=== PATIENT | male | born 1960 | race Caucasian/White ===

== ENCOUNTER 2020-06-25 07:29 | Outpatient (CLI) | payer BC, SELFPAY ==
[2020-06-25 07:34] VITALS: BMI 30.9
--- NOTE | 2020-06-25 07:35 | ECG_ITS ---
[facility] Test Date: 2020-06-25 Pat Name: Frank Boykin Department: Room: Gender: Male Capacity Analyst: : 1960 Requested By: Christophre Purvis Order Number: [id number] Chung MD: Benny Groves M.D. Interpretive Statements NAME OF STUDY: LEXISCAN SESTAMIBI STRESS TEST INDICATION: [abnormal ekg] Procedure: At the baseline the blood pressure was 146/101 mmHg, with a heart rate of 82 bpm. The electrocardiogram showed normal sinus rhythm, normal axis with normal ST and T's. The Lexiscan was infused over the period Of 20 seconds. A total of 0.4 mg of Lexiscan was infused. The stress phase was continued for a total of 5 minutes. Heart rate at the end of stress phase was 86 bpm, with a blood pressure of 142/97 mmHg. The EKG at the peak infusion revealed sinus tachycardia with no significant ST-T wave changes. Sestamibi was injected 20 seconds after Lexiscan infusion. Blood pressure at the end of recovery phase was 137/86 mmHg, with a heart rate of 83 bpm. EKG showed sinus tachycardia without significant ST???T wave changes. Conclusion: 1. Normal EKG response to Lexiscan infusion. 2. No Lexiscan induced chest pain or cardiac arrhythmia. 3. Normal blood pressure and heart rate response. 4. Sestamibi/sestamibi perfusion scan pending; see separate report. Electronically Signed On 07-10-2020 19:51:21 CDT by Benny Groves M.D. [id number]
--- NOTE | 2020-06-25 07:35 | NMCV_ITS ---
NM bethany perf SPECT r/s* [id number] Frank Boykin Age: 59 Gender: M : 1960 Exam Date: 06/25/2020 08:33 Ordering Phys: Christopher Johnson MD Technologist: GAGE Ji Exam Location: [facility] Indications: ABNORMAL EKG STRESS TEST Please see separate stress test report in [facility] for full findings IMAGE PROTOCOL Rest/Stress 1 Lexiscan Day Radiopharmaceutical Dose (mCi) Administration Site Administered by Rest: Tc-99m 10.9 IV GAGE Watson Sestamibi Stress:Tc-99m 32.7 IV GAGE Watson Sestamibi Rest: 25-Jun-2020 60 Discovery 630 Stress: 25-Jun-2020 30 Discovery 630 0.4mg Lexiscan. Images obtained in supine and prone position. SPECT RESULTS Technical Quality: Excellent Raw Data Analysis: Normal Image Corrections: No attenuation or motion correction applied Summed Stress Score: 3 Summed Rest Score: 3 Summed Difference Score: 1 PERFUSION FINDINGS Small area of decreases uptake was noted in the mid inferior, inferolateral and apical inferior regions. A subtle area of reversibility was noted in the mid inferolateral region. FUNCTIONAL RESULTS (calculated via Gated SPECT) Stress Image LV EF (%): 65 Stress EDV (mL):111 TID: 1.13 Stress ESV (mL):39 FUNCTIONAL FINDINGS: Segmental wall motion analysis revealing no gross wall motion normalities. IMPRESSIONS 1. Myocardial perfusion imaging revealing a small area of decreases uptake in the mid inferolateral, mid inferior and apical lateral regions, with a subtle area of reversibility in the mid inferolateral region, suggestive of myocardial scarring in the distribution of the left circumflex artery/right coronary artery with a very small area of possible bull-infarction ischemia in the distribution of the circumflex artery. 2. Normal LV ejection fraction of 65%. 3. LV wall motion analysis revealing no gross wall motion normalities. 4. Normal LV volume. No similar previous studies are available for comparison Dr Zhen Eden MD FAC (Electronically Signed) Final Date: 25 June 2020 13:42 S
[2020-06-25] MEDS: regadenoson 0.4 Mg/5 ml Syringe IVP (09:58)
[2020-06-25 10:18] VITALS: BP 137/86; PULSE 83
== END 2020-06-25 07:30 | disposition home or self-care (01) ==
LOC: CDL 07:32
PROVIDERS: Family Provider Family Medicine; Visit Provider Family Medicine
DX: R94.31 Abnormal electrocardiogram [ECG] [EKG] (principal); I25.9 Chronic ischemic heart disease, unspecified
CPT/HCPCS: 78452; 93017; A9500; J2785

== ENCOUNTER 2020-07-22 19:20 | Outpatient (CLI) | payer BC, SELFPAY ==
[2020-07-22 20:49] LABS: INR 1.88 (0.8-1.2)
== END 2020-07-22 19:21 | disposition home or self-care (01) ==
LOC: LAB 19:24
PROVIDERS: Family Provider Family Medicine; Visit Provider Chiropractor Sports Physician
DX: Z51.81 Encounter for therapeutic drug level monitoring (principal)
CPT/HCPCS: 85610

== ENCOUNTER 2020-07-29 07:57 | Outpatient (CLI) | payer BC, SELFPAY ==
[2020-07-29 08:41] LABS: INR 2.06 (0.8-1.2)
== END 2020-07-29 07:58 | disposition home or self-care (01) ==
LOC: LAB 08:00
PROVIDERS: PCP Family Medicine; Visit Provider Orthopaedic Surgery
DX: Z51.81 Encounter for therapeutic drug level monitoring (principal)
CPT/HCPCS: 85610

== ENCOUNTER 2020-08-02 12:37 | Outpatient (RCR) | payer BC, SELFPAY | END 2020-08-23 23:59 | disposition home or self-care (01) | LOC: SPT 12:37 | PROVIDERS: PCP Family Medicine; Referring Provider Orthopaedic Surgery; Visit Provider Orthopaedic Surgery | DX: Z47.1 Aftercare following joint replacement surgery (principal); Z96.642 Presence of left artificial hip joint | CPT/HCPCS: 97110; 97162 ==

== ENCOUNTER 2020-08-02 12:49 | Outpatient (CLI) | payer BC, SELFPAY ==
[2020-08-02 13:23] LABS: INR 2.06 (0.8-1.2)
== END 2020-08-02 12:50 | disposition home or self-care (01) ==
LOC: LAB 12:51
PROVIDERS: PCP Family Medicine; Visit Provider Orthopaedic Surgery
DX: Z79.01 Long term (current) use of anticoagulants (principal); Z51.81 Encounter for therapeutic drug level monitoring
CPT/HCPCS: 36415; 85610

== ENCOUNTER 2020-08-10 07:53 | Outpatient (RCR) | payer BC, SELFPAY ==
[2020-08-05 09:23] LABS: INR 1.82 (0.8-1.2)
[2020-08-10 08:20] LABS: INR 1.93 (0.8-1.2)
== END 2020-08-23 23:59 | disposition home or self-care (01) ==
LOC: LAB 07:53
PROVIDERS: PCP Family Medicine; Visit Provider Orthopaedic Surgery
DX: Z79.01 Long term (current) use of anticoagulants (principal); Z96.649 Presence of unspecified artificial hip joint; Z96.659 Presence of unspecified artificial knee joint; Z51.81 Encounter for therapeutic drug level monitoring
CPT/HCPCS: 36415; 85610

== ENCOUNTER 2020-08-24 06:00 | Outpatient (RCR) | payer BC, SELFPAY | END 2020-09-07 23:00 | disposition home or self-care (01) | LOC: SPT 06:00 | PROVIDERS: PCP Family Medicine; Referring Provider Orthopaedic Surgery; Visit Provider Orthopaedic Surgery | DX: Z47.1 Aftercare following joint replacement surgery (principal); Z96.642 Presence of left artificial hip joint | CPT/HCPCS: 97110 ==

== ENCOUNTER 2020-09-21 10:28 | Outpatient (CLI) | payer BC, SELFPAY ==
[2020-09-21 11:06] VITALS: BP 130/82; PULSE 84; RESP 17; TEMP 36.3; O2SAT 99; BMI 35.2
--- NOTE | 2020-09-21 11:29 | AMB.MCA ---
Patient Information Referred by: Elizabeth Symptom onset date: 09/20/20 COVID 19 common symptoms: positive chills, cough, non-productive cough, fatigue and body aches COVID 19 other sytmptoms: negative chest pressure, chest pain, requiring oxygen (99% RA) or requiring more oxygen Severity: moderate Treatment prior to arrival: none [facility] COVID test results: No Data to Display Criteria/Plan Inclusion/Exclusion Criteria weight >/= 40kg, + direct test </= 10 days ago and symptom onset </= 10 days ago has diabetes and age >/= 55 and has hypertension not requiring hospitalization, not requiring oxygen (if not chronically on oxygen) and no increase oxygen requirement (if chronically on oxygen) Patient education patient/caregiver received/reviewed fact sheet, Emergency Use Authorization/unapproved drug status discussed with patient/caregiver, alternatives to this treatment discussed with patient/caregiver, risks and benefits of medication reviewed with patient/caregiver, patient/caregiver given opportunity for questions, which were answered and patient/caregiver consents to receiving Monoclonal Antibody Treatment Plan for treatment Meets criteria for Monoclonal Antibody infusion Ordering Monoclonal Antibody infusion for today
[2020-09-21 12:15] VITALS: BP 120/81; PULSE 81; RESP 17; TEMP 36.4; O2SAT 96
[2020-09-21 12:37] VITALS: BP 123/81; PULSE 86; RESP 16; TEMP 36.6; O2SAT 96
[2020-09-21 14:02] VITALS: BP 119/80; PULSE 87; RESP 17; TEMP 36.4; O2SAT 97
--- NOTE | 2020-09-28 13:05 | DCPLANNER ---
Addendum entered by Jo Davis 10/05/20 13:28: manager inventory management called patient to check on patient 10 days after getting infusion. Patient stated that he is doing great, has went back to work. Patient stated that he has not been admitted to hospital. 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 Original Note: late entry - manager inventory management had message that patient received the BAM infusion. manager inventory management wrote in spread sheet, forgot to right in patients chart. Patient stated that he tolorated the infusion well. Patient stated that before he had the infusion that he had chills, a bad headache, he felt exhausted, he was tired, he had a bad cough. After the infusion patient stated that he still has cough, and it is a little worse than before. His chills are better, body aches are about the same, and his headache is better.
== END 2020-09-21 13:56 | disposition home or self-care (01) ==
PROVIDERS: PCP Family Medicine; Visit Provider Family Medicine
DX: U07.1 COVID-19 (principal)
CPT/HCPCS: J7050

== ENCOUNTER 2020-10-15 09:45 | Emergency (ER) | payer BC, SELFPAY ==
[2020-10-15 09:47] VITALS: BP 147/92; PULSE 96; RESP 18; TEMP 35.9; O2SAT 95; BMI 32.1
--- NOTE | 2020-10-15 09:52 | XR_ITS ---
WS: [id number] Left ankle, 3 views, 10/15/2020 Clinical Data: ankle pain Comparison: None. Findings: No fractures or dislocations are seen. The ankle mortise is normal. The talus and calcaneus are unrem arkable. No soft tissue swelling over the medial or lateral malleolus is seen. There is a bone cyst in the calcaneus which is a normal variation. There is a small plantar spur. XR/XR ankle LT min 3V* [id number] Impression: Negative left ankle.
--- NOTE | 2020-10-15 09:52 | W.ED.LOWEXIN ---
HPI - Extremity Injury (Lower) General: Chief Complaint: Extremity Injury, Lower Stated Complaint: L FOOT/ANKLE PAIN/INJURY Time Seen by Provider: 10/15/20 09:52 Source: patient Mode of arrival: ambulatory (with limp) Limitations: no limitations History of Present Illness: HPI Narrative: Patient is a nice 59-year-old gentleman who presents to ED today for evaluation of a left lower extremity injury. Patient tells me he was pushing a golf cart up a ramp when he heard a pop . He states since that time his ankle has felt unsteady . He is complaining of pain to the posterior aspect. He feels like the ankle is starting to swell. complaint: ankle injury and foot injury Onset (ago): hour(s) Place: work Exacerbating factors: weight bearing Other symptoms: none Review of Systems Musc: Reports: extremity pain (L posterior foot/ankle pain) Neuro: Denies: numbness in extremities or sensory changes PFSH ED PFSH: Medical History (Updated 10/15/20 @ 10:39 by OSMANI Terry) Diabetes mellitus History of DVT (deep vein thrombosis) History of NC (myocardial infarction) Hypertension Physical Exam Const: COMMON NORMALS: no acute distress, average body habitus, patient oriented x3, no limitations, healthy appearing, alert and well nourished Extremity: COMMON NORMALS: normal to inspection GENERAL: Yes normal exam except as noted OTHER: pt with TTP over heel and distal Achilles tendon and along medial wall of distal tendon; there is no palpable bump; no obvious swelling/warmth; he does have decreased plantarflexion and pain with Owusu's test Neuro: COMMON NORMALS: patient oriented x3, moves all extremities, no focal motor deficits and no sensory deficits noted SENSORIUM/ORIENTATION: Yes alert GAIT: Yes Other gait observations present (limping gait) Skin: COMMON NORMALS: no rashes or lesions noted GENERAL SKIN EXAM: no rashes or lesions noted Course Vital Signs: Vital signs: Vital Signs Temperature 96.6 F L 10/15/20 09:47 Pulse Rate 96 10/15/20 09:47 Respiratory Rate 18 10/15/20 09:47 Blood Pressure 147/92 10/15/20 09:47 Pulse Oximetry 95 10/15/20 09:47 MDM - Extremity Injury (Lower) MDM Narrative: Medical decision making narrative: At this time my suspicion is that patient has a partial Achilles tendon tear. He will be splinted and given crutches and CM will work on getting him set up with orthopedics for further evaluation. Imaging Data^: XR L ankle : Radiologist's impression: [address] [place] [address] XRay Report Signed Patient: Frank Boykin Unit #: [id number] : 1960 Age/Sex: 59 / M ADM Date: 10/15/20 Loc: ER Room/Bed: Attending Dr: Ordering Provider/Ordering MD: Ron Ramirez DO Date of Service: 10/15/20 Procedure(s): XR ankle LT min 3V* [id number] Accession Number(s): [id number] Report Number: [id number] WS: [id number] Left ankle, 3 views, 10/15/2020 Clinical Data: ankle pain Comparison: None. Findings: No fractures or dislocations are seen. The ankle mortise is normal. The talus and calcaneus are unremarkable. No soft tissue swelling over the medial or lateral malleolus is seen. There is a bone cyst in the calcaneus which is a normal variation. There is a small plantar spur. XR/XR ankle LT min 3V* [id number] Impression: Negative left ankle. Dictated By: Jaylene Ellis MD Signed By: Jaylene Ellis MD Signed Date/Time: 10/15/20 1006 DD/ 1005 Discharge Plan Discharge Patient Disposition: Home Clinical Impression: Partial Achilles tendon tear Qualifiers: Encounter type: initial encounter Laterality: left Qualified Code(s): S86.012A - Strain of left Achilles tendon, initial encounter Condition: Stable Prescriptions: No Action pioglitazone 30 mg Tablet 30 mg PO DAILY RF: 0 amlodipine 5 mg Tablet RF: 0 lisinopril 40 mg Tablet 40 mg PO DAILY RF: 0 lansoprazole 30 mg Capsule,Delayed Release(Dr/Ec) RF: 0 valacyclovir 500 mg Tablet 500 mg PO DAILY RF: 0 glimepiride 4 mg Tablet 4 mg PO DAILY RF: 0 Glucophage 1,000 mg Tablet PO RF: 0 Legatrin PM 50-500 mg Tablet PO RF: 0 Jeanie Aspirin 325 mg Tablet 325 mg PO DAILY RF: 0 Discharge Orders: Discharge ED (Routine); Ordered 10/15/20 Ordered By: Roxana Covington Referrals: Christopher Johnson MD [Primary Care Provider] - Patient Instructions: Achilles Tendon Rupture (ED), Achilles Tendinitis (ED) Activity Restrictions/Additional Instructions: As discussed you need to stay in your splint and be non-weight bearing until told otherwise by orthopedics. Case management will work on getting you set up with an appointment to see them for further evaluation. Coding Level of Care Code ED Double End Tenoner Setter for Dago Patricio
--- NOTE | 2020-10-15 10:33 | PC.NURSE ---
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
--- NOTE | 2020-10-15 10:50 | DCPLANNER ---
Addendum entered by Jo Davis 10/15/20 11:44: Patient wants to be seen in [facility], would like to see Dr. Velasquez at [facility]. research project manager faxed patients information to the clinic. Clinic will call patient with appointment information. research project manager called [facility], and cancelled the referral. Original Note: research project manager was asked to schedule a follow up appointment for patient with ortho. research project manager called the ortho clinic, spoke with Yu, gave clinic patients information. research project manager was told that patients information would be printed and reviewed. Clinic will call patient with appointment information.
[2020-10-15 11:08] VITALS: BP 142/89; PULSE 91; RESP 20; O2SAT 96
--- NOTE | 2020-10-26 12:56 | DCPLANNER ---
Patient had a follow up appointment with Dr. Velasquez in [facility], patient did attend appointment.
== END 2020-10-15 11:14 | disposition home or self-care (01) ==
PROVIDERS: Emergency Provider Physician Assistant; PCP Family Medicine
DX: S86.012A Strain of left Achilles tendon, initial encounter (principal); Z79.82 Long term (current) use of aspirin; E11.9 Type 2 diabetes mellitus without complications; I25.2 Old myocardial infarction; I10 Essential (primary) hypertension; X50.9XXA Other and unspecified overexertion or strenuous movements or postures, initial encounter
CPT/HCPCS: 12345; 73610; 99282; 99283; E0114; L3260

== ENCOUNTER 2020-11-23 12:03 | Outpatient (RCR) | payer BC, SELFPAY | END 2020-12-22 23:59 | disposition home or self-care (01) | LOC: SPT 12:03 | PROVIDERS: PCP Family Medicine; Referring Provider Orthopaedic Surgery; Visit Provider Orthopaedic Surgery | DX: Z98.890 Other specified postprocedural states (principal) | CPT/HCPCS: 97110; 97140; 97161 ==

== ENCOUNTER 2020-12-23 06:00 | Outpatient (RCR) | payer BC, SELFPAY | END 2021-01-19 14:21 | disposition home or self-care (01) | LOC: SPT 06:00 | PROVIDERS: PCP Family Medicine; Referring Provider Orthopaedic Surgery; Visit Provider Orthopaedic Surgery | DX: Z98.890 Other specified postprocedural states (principal) | CPT/HCPCS: 97110; 97140 ==

== ENCOUNTER → 2022-11-16 09:28 | Outpatient (BNVA) | payer BC, SELFPAY | PROVIDERS: PCP Family Medicine; Visit Provider Family Medicine | DX: I10 Essential (primary) hypertension (principal); E11.9 Type 2 diabetes mellitus without complications | CPT/HCPCS: 80053; 80061; 83036 ==

== ENCOUNTER → 2023-02-07 08:45 | Outpatient (BNVA) | payer BC, SELFPAY | PROVIDERS: PCP Family Medicine; Visit Provider Family Medicine | DX: I10 Essential (primary) hypertension (principal); E11.9 Type 2 diabetes mellitus without complications; R05.9 Cough, unspecified | CPT/HCPCS: 80053; 80061; 83036; 83880; 85025; 85379 ==

== ENCOUNTER → 2023-05-22 08:57 | Outpatient (BNVA) | payer BC, SELFPAY | PROVIDERS: PCP Family Medicine; Visit Provider Family Medicine | DX: I10 Essential (primary) hypertension (principal); E11.9 Type 2 diabetes mellitus without complications | CPT/HCPCS: 80053; 80061; 83036 ==

== ENCOUNTER → 2023-09-12 08:48 | Outpatient (BNVA) | payer BC, SELFPAY | PROVIDERS: PCP Family Medicine; Visit Provider Family Medicine | DX: I10 Essential (primary) hypertension (principal); E11.9 Type 2 diabetes mellitus without complications | CPT/HCPCS: 80053; 80061; 83036; 83721; 85025 ==

== ENCOUNTER → 2023-12-12 08:33 | Outpatient (BNVA) | payer BC, SELFPAY | PROVIDERS: PCP Family Medicine; Visit Provider Family Medicine | DX: I10 Essential (primary) hypertension (principal); E11.9 Type 2 diabetes mellitus without complications | CPT/HCPCS: 80053; 80061; 83036 ==

== ENCOUNTER → 2024-03-13 08:51 | Outpatient (BNVA) | payer BC, SELFPAY | PROVIDERS: PCP Family Medicine; Visit Provider Family Medicine | DX: I10 Essential (primary) hypertension (principal); E11.9 Type 2 diabetes mellitus without complications | CPT/HCPCS: 80053; 80061; 83036 ==

== ENCOUNTER → 2024-06-11 09:10 | Outpatient (BNVA) | payer MEDICARE, SELFPAY | PROVIDERS: PCP Family Medicine; Visit Provider Family Medicine | DX: I10 Essential (primary) hypertension (principal); E11.9 Type 2 diabetes mellitus without complications | CPT/HCPCS: 80053; 80061; 83036; 85025 ==

== ENCOUNTER → 2024-09-08 13:48 | Outpatient (BNVA) | payer MEDICARE, SELFPAY | PROVIDERS: PCP Family Medicine; Visit Provider Family Medicine | DX: I10 Essential (primary) hypertension (principal); E11.9 Type 2 diabetes mellitus without complications | CPT/HCPCS: 80053; 80061; 83036 ==

== ENCOUNTER → 2024-11-27 08:42 | Outpatient (BNVA) | payer MEDICARE, SELFPAY | PROVIDERS: PCP Family Medicine; Visit Provider Family Medicine | DX: I10 Essential (primary) hypertension (principal); E11.9 Type 2 diabetes mellitus without complications | CPT/HCPCS: 80053; 80061; 83036 ==

== ENCOUNTER → 2024-12-11 12:57 | Outpatient (BNVA) | payer MEDICARE, SELFPAY | PROVIDERS: PCP Family Medicine; Visit Provider Podiatrist Foot & Ankle Surgery | DX: E11.9 Type 2 diabetes mellitus without complications (principal); S86.011A Strain of right Achilles tendon, initial encounter; X58.XXXA Exposure to other specified factors, initial encounter; Z79.84 Long term (current) use of oral hypoglycemic drugs | CPT/HCPCS: 99203 ==

== ENCOUNTER 2024-12-23 05:00 | Outpatient (RCR) | payer MEDICARE, SELFPAY | END 2025-01-21 23:59 | disposition home or self-care (01) | LOC: SPT 05:00 | PROVIDERS: Visit Provider Podiatrist Foot & Ankle Surgery | DX: S86.001D Unspecified injury of right Achilles tendon, subsequent encounter (principal); X58.XXXD Exposure to other specified factors, subsequent encounter | CPT/HCPCS: 97161 ==

== ENCOUNTER → 2025-01-01 12:51 | Outpatient (BNVA) | payer MEDICARE, SELFPAY | PROVIDERS: PCP Family Medicine; Visit Provider Podiatrist Foot & Ankle Surgery | DX: E11.9 Type 2 diabetes mellitus without complications (principal); S86.011A Strain of right Achilles tendon, initial encounter; S99.911A Unspecified injury of right ankle, initial encounter; Z79.84 Long term (current) use of oral hypoglycemic drugs; X58.XXXA Exposure to other specified factors, initial encounter | CPT/HCPCS: 99213 ==

== ENCOUNTER 2025-01-22 05:00 | Outpatient (RCR) | payer MEDICARE, SELFPAY | END 2025-02-21 23:59 | disposition home or self-care (01) | LOC: SPT 05:00 | PROVIDERS: Visit Provider Podiatrist Foot & Ankle Surgery | DX: S86.001D Unspecified injury of right Achilles tendon, subsequent encounter (principal); X58.XXXD Exposure to other specified factors, subsequent encounter | CPT/HCPCS: 97110; 97112; 97140 ==

== ENCOUNTER 2025-02-22 05:00 | Outpatient (RCR) | payer MEDICARE, SELFPAY | END 2025-03-03 12:47 | disposition home or self-care (01) | LOC: SPT 05:00 | PROVIDERS: PCP Family Medicine; Visit Provider Podiatrist Foot & Ankle Surgery | DX: S86.001D Unspecified injury of right Achilles tendon, subsequent encounter (principal); X58.XXXD Exposure to other specified factors, subsequent encounter | CPT/HCPCS: 97110; 97112; 97140 ==

== ENCOUNTER → 2025-02-26 07:19 | Outpatient (BNVA) | payer MEDICARE, SELFPAY | PROVIDERS: PCP Family Medicine; Visit Provider Family Medicine | DX: I10 Essential (primary) hypertension (principal); E11.9 Type 2 diabetes mellitus without complications; M25.511 Pain in right shoulder | CPT/HCPCS: 80053; 80061; 83036 ==

== ENCOUNTER → 2025-04-07 07:57 | Outpatient (BNVA) | payer MEDICARE, SELFPAY | PROVIDERS: PCP Family Medicine; Visit Provider Student in an Organized Health Care Education/Training Program | DX: M25.511 Pain in right shoulder (principal); M19.011 Primary osteoarthritis, right shoulder | CPT/HCPCS: 73030; 99203 ==

== ENCOUNTER → 2025-09-09 09:20 | Outpatient (BNVA) | payer MEDICARE, SELFPAY | PROVIDERS: PCP Family Medicine; Visit Provider Family Medicine | DX: I10 Essential (primary) hypertension (principal); E11.9 Type 2 diabetes mellitus without complications | CPT/HCPCS: 80053; 80061; 83036; 85025 ==